=== PATIENT | female | born 1985 | race Hispanic/Latino ===

== ENCOUNTER 2017-07-16 16:34 | Emergency (ER) | payer OTHER ==
[~2017-07-16] VITALS: Ht 162.6 cm; Wt 49.9 kg
[~2017-07-16 16:34] MED LIST: ALBUTEROL0.09 MG/A1 INH; AUGMENTIN 875 M1 TAB PO; BENTYL20 M1 PO; CITALOPRAM HBR20 MG; FLAGYL500 MG PO; IBUPROFEN600 M1 PO; LOMOTIL 2.5-0.1 EACH PO; MEDROL4 M2 PO; MOBIC 15MG15 MG PO; PREDNISONE10 M2 PO; TRAMADOL50 MG PO; VISTARIL25 M1 PO; ZOFRAN4 M1 PO; ZOFRAN4 M2 PO
[2017-07-16 16:45] VITALS: BP 131/88
[2017-07-16 17:32] LABS: ABSOLUTE BASOPHIL COUNT 0.1 /CUMM (0.0-0.2); ABSOLUTE EOSINOPHIL COUNT 0.2 /CUMM (0.0-0.7); ABSOLUTE GRANULOCYTE CT 5.4 /CUMM (1.4-6.5); ABSOLUTE LYMPH COUNT 2.6 /CUMM (1.2-3.4); ABSOLUTE MONOCYTE COUNT 0.5 /CUMM (0.10-0.60); BASOPHIL % 0.6 % (0.0-2.0); EOSINOPHIL % 2.1 % (0-5); GRANULOCYTE % 61.1 % (42.2-75.2); HEMATOCRIT 43.1 % (37-47); MEAN CORPUSCULAR HGB 31.4 PG (27.0-31.0); MEAN CORPUSCULAR HGB CONC 32.7 G/DL (33.0-37.0); MEAN CORPUSCULAR VOLUME 95.9 FL (81.0-99.0); PLATELET COUNT 321 /CUMM (130-400); RBC DISTRIBUTION WIDTH 12.1 % (11.5-14.5); WHITE BLOOD CELL COUNT 8.8 /CUMM (4.8-10.8)
== END 2017-07-16 18:55 | disposition admitted as inpatient to this hospital (09) ==
LOC: ERH 16:34
PROVIDERS: Emergency Medicine
DX: R07.9 Chest pain, unspecified (principal); R10.10 Upper abdominal pain, unspecified
CPT/HCPCS: 93005; 93010; 99281